=== PATIENT | female | born 1990 | race Hispanic/Latino ===

== ENCOUNTER 2018-01-11 02:03 | Emergency (ER) | payer OTHER ==
[2018-01-11 02:38] LABS: #Eosinphils 0.2 thou/uL (0.0-0.7); #Monocytes 0.4 thou/uL (0.11-0.59); #Neutrophils 4.5 thou/uL (1.40-6.50); %Basophils 0.5 % (0.0-1.0); %Eosinophils 2.6 % (0.0-10.0); %Lymphocytes 16.7 % (21.0-51.0); %Neutrophils 74.3 % (42.0-75.0); Hemoglobin 13.7 g/dL (12.0-16.0); Mean Corpuscular HGB CONC 33.1 g/dL (32.0-36.0); Mean Corpuscular Hemoglobin 28.4 pg (27.0-31.0); Mean Corpuscular Volume 85.7 fl (81.0-99.0); Mean Platelet Volume 7.5 fL (7.4-10.4); Platelet Count 185 thou/uL (130-400); RBC Distribution Width 13.5 % (11.5-14.5); Red Blood Cell (RBC) Count 4.82 mill/uL (4.20-5.40); White Blood Cell (WBC) Count 6.1 thou/uL (4.8-10.8)
[2018-01-11] MEDS ORDERED: Morphine 4 MG/ML VIAL ONE ×2 (03:05→04:38)
[2018-01-11] MEDS ORDERED: Ketorolac Tromethamine 30 MG/ML VIAL ONE (03:08)
[2018-01-11] MEDS ORDERED: Ondansetron HCl/PF 4 MG/2 ML Vial ONE (03:08)
[2018-01-11 03:32] LABS: ALT (SGPT) 31 U/L (8-55); AST (SGOT) 22 U/L (5-34); Albumin 4.1 g/dL (3.5-5.0); Alkaline Phosphatase 171 U/L (40-150); Anion Gap 14 mmol/L (10-20); BUN (Urea Nitrogen) 10 mg/dL (7.0-18.7); Bilirubin, Total 0.4 mg/dL (0.2-1.2); Calc. Creatinine Clearance 0 mL/min (70-130); Calcium 9.3 mg/dL (7.8-10.44); Carbon Dioxide 22 mmol/L (22-29); Chloride 107 mmol/L (98-107); Estimated GFR-MDRD Greater than 90; Globulin 3.4 g/dL (2.4-3.5); Glucose 103 mg/dL (70-105); Potassium 4.3 mmol/L (3.5-5.1); Protein, Total 7.5 g/dL (6.0-8.3); Sodium 139 mmol/L (136-145)
[2018-01-11 03:36] LABS: Bilirubin Small (Negative); Blood, Urine Large (Negative); Glucose, Urine (Dipstick) Negative (Negative); Leukocyte Negative (Negative); Nitrite Negative (Negative); Protein, Urine (Dipstick) 100 mg/dL (Neg-Trace); Urobilinogen 0.2 mg/dL (0.2-1.0); pH, Urine 5.5 (5.0-9.0)
[2018-01-11 03:53] LABS: Clarity Clear (Clear)
[2018-01-11 03:54] LABS: Bacteria/HPF Rare-Few HPF (None Seen); Hyaline Casts/LPF 0-3 HYALINE CAST LPF (0-3 Hyaline); RBC/HPF 0-3 HPF (0-3); Specific Gravity, Urine 1.029 (1.002-1.036)
[2018-01-11 03:55] LABS: Other Microscopic Description Less than 2 mL rec'd
--- NOTE | 2018-01-11 09:16 | CT ---
PRELIMINARY REPORT/[facility]/EMERGENCY AFTER HOURS PROCEDURE: EXAM: CT Abdomen and Pelvis Without Intravenous Contrast CLINICAL HISTORY: 27 years old, female; Pain; Abdominal pain; Flank; Left; Patient HX: Pt has HX of renal stones. Pt diez d recent uncomplicated vaginal delivery of child 1 week ago. Pt developed l flank pain yesterday that is episodic and acutely worse while tonight. Pt denies vaginal bleeding or discharge. Pt endorses urinary urgency and dysuria. No fever HX. TECHNIQUE: Axial computed tomography images of the abdomen and pelvis without intravenous contrast. Coronal reformatted images were created and reviewed. COMPARISON: No relevant prior studies available. FINDINGS: Calcified granuloma in the right lower lobe. The lung bases otherwise appear essentially clear. Right kidney: Several small right intrarenal calculi. No hydronephrosis or visible mass. No hydroureter or visible ureteral calculus. Left kidney: 2 or 3 left intrarenal calculi. Moderate left hydronephrosis and hydroureter. There is a 7 x 5 mm distal left ureteral calculus, at the urinary bladder. The calculus is probably i n the intramural portion of the distal ureter. It is possible that it has already been passed into th e urinary bladder. Please correlate clinically. No definite gallbladder abnormality by CT. No biliary tree dilation. Unremarkable appearance of the liver, spleen, adrenal glands, and pancreas. No free air, ascites, or bowel distention. No retroperitoneal adenopathy. CT pelvis: Urinary bladder appears essentially unremarkable by CT. The appendix is visualized and appears normal. There are no CT findings to strongly suggest diverticulitis. Post uterus remains enlarged. IMPRESSION: There is a 7 x 5 mm distal left ureteral calculus, details above. Moderate left hydronephrosis and hydroureter. Bilateral intrarenal calculi. No diverticulitis. Normal appendix. No free air or bowel distention. Other findings discussed above. Thank you for allowing us to participate in the care of your patient. Dictated and Authenticated by: Nasir Wellington MD 01/11/2018 3:52 AM Central Time ([place] & [place]) FINAL REPORT ABDOMEN CT WITHOUT CONTRAST PELVIC CT WITHOUT CONTRAST: HISTORY: Uncomplicated vaginal delivery 1 week ago. Left flank pain, starting yesterday. COMPARISON: None. TECHNIQUE: Abdomen and pelvic CT is performed without IV contrast following a renal stone protocol. Coronal ref ormatted images are submitted for interpretation. FINDINGS: This report is in agreement with the preliminary report by [facility]. There are nonobstructing calculi in the right renal pelvis. No evidence of right-sided obstructive uropathy. There are nonobstructing calcifications in the left renal pelvis. There is moderate left-sided hydro nephrosis and hydroureter. There is a calcification in the left hemipelvis which may be in the left ureterovesicular junction, measuring 0.9 x 0.4 cm. Based on the images provided, the possibility ircha t this calculus has actually passed and not in the bladder cannot be completely excluded. No evidence of bowel obstruction. Normal caliber appendix is noted. Enlarged uterus, compatible wit h state is noted. IMPRESSION: 1. Moderate left-sided obstructive uropathy due to a calculus in the left hemipelvis which may be in the distal left ureter/ureterovesicular junction or possibly represent a passed calculus that is now in the urinary bladder. Correlate clinically. POS: MASOOD
== END 2018-01-11 05:10 | disposition home or self-care (01) ==
LOC: ERS 02:03
DX: O99.89 Other specified diseases and conditions complicating pregnancy, childbirth and the puerperium (principal); N13.30 Unspecified hydronephrosis
CPT/HCPCS: 74176; 80053; 81003; 81015; 85025; 93005; 96374; 96375; 96376; J1885; J2270; J2405